=== PATIENT | female | born 1995 | race Caucasian/White ===

== ENCOUNTER 2021-08-13 10:33 | Emergency (ER) | payer OTHER, SELFPAY ==
--- NOTE | 2021-08-13 10:35 | ED.HA ---
HPI - Headache General Chief Complaint: Headache Stated Complaint: Headache Time Seen by Provider: 08/13/21 10:52 Source: patient and RN notes reviewed Mode of arrival: ambulatory Limitations: no limitations History of Present Illness HPI Narrative: 26-year-old female presents with concern for migraine headache. Reports intermittent migraine for the last 3 days. Reports a frontal headache that feels like a rubber band . Reports last medication she took was ibuprofen yesterday. She reports in the past she had chronic migraines for which she was medicated. Reports she is no longer medicated because she has not had migraines in quite some time. She denies any head injury, thunderclap headache, weakness in any extremity. She reports episodes of dizziness when she stands up while she has a headache. She denies dizziness when she does not have a headache. MD elicited complaint: migraine Related Data Allergies Allergy/AdvReac Type Severity Reaction Status Date / Time acetaminophen [From Tylenol] Allergy Unknown Verified 08/13/21 10:49 amoxicillin Allergy Unknown Verified 08/13/21 10:49 Review of Systems Review of Systems: CONSTITUTIONAL: Denies malaise, chills, sweats, or fever. EYES: Denies visual changes CARDIOVASCULAR: Denies chest pain, palpitations, or edema. RESPIRATORY: Denies cough or dyspnea. GASTROINTESTINAL: Reports occasional nausea related to dizziness. Denies vomiting MUSCULOSKELETAL: Denies myalgia. NEUROLOGIC: Denies numbness, weakness. Reports intermittent frontal headache, occasional dizziness All systems reviewed & are unremarkable except as noted in HPI and below PMFSH Comments At time of signature, agree with nursing past medical, surgical, social and family history. There is no relevant family history pertinent to the presenting complaint Exam Narrative: GENERAL: Well-appearing, well-nourished, and in no acute distress. HEAD: Normocephalic, atraumatic. EYES: PERRLA, sclera clear, and EOMI. No nystagmus. ENT: Nares clear, turbinates pink, no rhinorrhea or epistaxis. Mucous membranes moist. TM pearly romero with sharp light reflex bilaterally; no tragal tenderness. Oropharynx without erythema or lesions. Tonsils not enlarged and without exudate. NECK: Supple. No lymphadenopathy. No jugular venous distension, thyromegaly, or carotid bruits. Carotids were easily palpable bilaterally. CHEST: No respiratory distress. Clear to auscultation. No bony deformities, no asymmetry. Speaks in full sentences. HEART: Regular rate and rhythm. No murmur heard. Normal peripheral pulses. ABDOMEN: Soft, nontender, nondistended, normal active bowel sounds, no palpable masses. EXTREMITIES: Normal range of motion. No edema. Normal strength and sensation. SKIN: Warm, dry, no visible rash. NEURO: Alert and oriented x3. No focal deficits. Cranial nerves II through XII grossly intact PSYCH: Normal mood and affect Course Course Emergency Course: Patient is aware of diagnosis, understands and agrees to treatment plan. Anticipatory guidance given. Patient agrees to follow-up as directed and is aware of reasons to seek care at the emergency department. Portions of this record may have been created with voice recognition software Vital Signs Vital signs: Reviewed. MDM - Headache MDM Narrative Medical decision making narrative: The patient presents with an acute onset headache for 3 days in duration. Patient has past history of migraine headaches. There is not a history of anticoagulation, trauma, , cancer or immunocompromised state. Mental status was normal, no neurological deficits were noted. Differential Diagnosis considered includes hypertensive emergency, subarachnoid hemorrhage, meningitis, trauma, CVA, migraine. Toradol IM given. The patient improved significantly and was discharged in stable condition. Recommendations were given for follow-up with PCP in 1-2 days and to return to the ED for worsening of headache or any o
[2021-08-13 10:50] VITALS: BP 109/74; PULSE 80; RESP 18; TEMP 37.1; O2SAT 100
[2021-08-13] MEDS: KETOROLAC (*BKC) 60 MG/2 ML VIAL IM (11:03)
[2021-08-13] MEDS: ONDANSETRON HCL ODT 4 MG TABLET PO (11:29)
== END 2021-08-13 11:44 | disposition home or self-care (01) ==
PROVIDERS: Emergency Provider Nurse Practitioner
DX: G43.009 Migraine without aura, not intractable, without status migrainosus (principal)
CPT/HCPCS: 96372; 99213; A9270; G0463; J1885